=== PATIENT | female | born 1935 | race Caucasian/White ===

== ENCOUNTER → 2017-08-25 | Outpatient (CLI) | payer OTHER | LOC: FIMAGING 11:55 | PROVIDERS: ATTEND Family Medicine | DX: Z12.31 Encounter for screening mammogram for malignant neoplasm of breast (principal) | CPT/HCPCS: G0202 ==

== ENCOUNTER → 2017-10-27 | Outpatient (CLI) | payer OTHER | LOC: BMCIMAGING 14:34 | PROVIDERS: ATTEND Family Medicine | DX: M71.22 Synovial cyst of popliteal space [Baker], left knee (principal) ==

== ENCOUNTER → 2018-03-27 | Outpatient (CLI) | payer OTHER | LOC: FIMAGING 12:57 | PROVIDERS: ATTEND Family Medicine | DX: N60.02 Solitary cyst of left breast (principal) ==

== ENCOUNTER → 2018-09-15 | Outpatient (CLI) | payer OTHER | LOC: FIMAGING 09:46 | PROVIDERS: ATTEND Family Medicine | DX: Z12.31 Encounter for screening mammogram for malignant neoplasm of breast (principal) ==

== ENCOUNTER 2018-10-22 16:39 | Inpatient (IN) | payer OTHER ==
--- NOTE | 2018-10-22 16:59 | EDPHY ---
H & P Time Seen by Provider: 10/22/18 16:57 HPI/ROS: CHIEF COMPLAINT: Fatigue and fever HISTORY OF PRESENT ILLNESS: Patient has been having symptoms on and off since about . She has been feeling intermittent fatigue and fever and chills and was started on azithromycin yesterday [facility] with a little bit of shortness of breath. Today she feels worse and comes to the ER for further evaluation. Fatigue and shortness of breath and fever. Symptoms moderate. Worse with exertion. Really more pronounced over the last 2-3 days. REVIEW OF SYSTEMS: Eye: no change in vision ENT: no sore throat Cardiac: no chest pain or syncope Pulmonary: HPI no hemoptysis or sputum production Abdomen: no vomiting, diarrhea, abdominal pain Musculoskeletal: no back pain or leg swelling Skin: no rash Neuro: no headache Constitutional: HPI : no urinary symptoms A comprehensive 10 point review of systems is otherwise negative aside from elements mentioned in the history of present illness. PAST MEDICAL HISTORY: Includes pneumonia, bowel obstruction, PE, C diff Social history: Nonsmoker General Appearance: Alert and conversant, cooperative. Eyes: No scleral icterus. ENT, Mouth: Dry mucous membranes. Respiratory: Rhonchi at the left base, slightly increased respiratory rate. Cardiovascular: Regular rate and rhythm. Gastrointestinal: Abdomen is soft and non tender. Neurological: Alert, face symmetric, normal motor and sensory in extremities. Skin: Warm and dry, no rashes. Musculoskeletal: No peripheral edema. Psychiatric: Not agitated. Emergency Department course/MDM: Chest x-ray, sepsis screening with lactate, IV fluid bolus. 1814: Chest x-ray personally reviewed shows left lower lung infiltrate, discussed with Dr. Vernon for admission. 1827: Flu positive, Tamiflu ordered. Will hold on staphylococcal antibiotics such as vancomycin at this time, discussed with Saulo. Smoking Status: Former smoker Constitutional: Initial Vital Signs Temperature (C) 38.6 C H 10/22/18 16:44 Heart Rate 96 10/22/18 16:44 Respiratory Rate 18 10/22/18 16:44 Blood Pressure 104/79 10/22/18 16:44 O2 Sat (%) 84 L 10/22/18 16:44 O2 Delivery Mode Nasal Cannula O2 (L/minute) 3 Allergies/Adverse Reactions: Sulfa (Sulfonamide Antibiotics) [Sulfa(Sulfonamide Antibiotics)] Allergy ( Verified 10/22/18 16:48) Rash Home Medications: Medication Instructions Recorded Cholecalciferol Vit D3 [Vitamin D3 2,000 units PO DAILY 12/28/12 2000 units (OTC)] Azithromycin 250 mg PO DAILY 10/22/18 Cyanocobalamin [Vitamin B12 (*)] 1,000 mcg PO DAILY 10/22/18 Levothyroxine [Synthroid 88 mcg 88 mcg PO DAILY06 10/22/18 (*)] Medical Decision Making - Diagnostics Imaging Results: Imaging Impressions Chest X-Ray 10/22/18 17:08 Impression: Stable negative chest. Large hiatal hernia. Imaging: I viewed and interpreted images myself Differential Diagnosis: Differential for fever considered including but not limited to UTI or pyelonephritis, pneumonia, meningitis, influenza. Critical Care Time: Critical care time spent by me, Dr. Harris, exclusively with the care of this patient was 40 minutes, exclusive of PA or PACKAGING ASSEMBLER time and exclusive of separate procedures. The organ system at risk was pulmonary and I ordered supplemental oxygen, antiviral, antibiotics, IV fluids to stabilize the patient and prevent worsening of the patient's condition. - Data Points Laboratory Results: Laboratory Results 10/22/18 17:25 10/22/18 17:25 10/22/18 10/22/18 10/22/18 17:25 17:25 17:25 WBC RBC Hgb Hct MCV MCH MCHC RDW Plt Count MPV Neut % (Auto) Lymph % (Auto) [place] % (Auto) Eos % (Auto) Baso % (Auto) Nucleat RBC Rel Count Absolute Neuts (auto) Absolute Lymphs (auto) Absolute Monos (auto) Absolute Eos (auto) Absolute Basos (auto) Absolute Nucleated RBC Immature Gran % Immature Gran # PT 15.3 SEC H SEC (12.0-15.0) INR 1.19 H (0.83-1.16) APTT 30.4 SEC SEC (23.0-38.0) VBG Lactic Acid Sodium 136 mEq/L mEq/L (135-145) Potassium 3.8 mEq/L mEq/L (3.5-5.2) Chloride 105 mEq/L mEq/L (97-110) Carbon Dioxide 25 mEq/l mEq/l (22-31) Anion Gap 6 mEq/L mEq/L (6-14) BUN 17 mg/dL mg/dL (7-23) Creatinine 0.8 mg/dL mg/dL (0.6-1.0) Estimated GFR > 60 Glucose 117 mg/dL H mg/dL (70-100) Calcium 8.5 mg/dL mg/dL (8.5-10.4) Total Bilirubin 0.8 mg/dL mg/dL (0.1-1.4) Nasal Influenza A PCR FLU A DETECTED H (NEGATIVE) Nasal Influenza B PCR NEGATIVE FOR FLU B (NEGATIVE) 10/22/18 10/22/18 17:25 17:25 WBC 5.69 10^3/uL 10^3/uL (3.80-9.50) RBC 4.45 10^6/uL 10^6/uL (4.18-5.33) Hgb 13.3 g/dL g/dL (12.6-16.3) Hct 38.9 % % (38.0-47.0) MCV 87.4 fL fL (81.5-99.8) MCH 29.9 pg pg (27.9-34.1) MCHC 34.2 g/dL g/dL (32.4-36.7) RDW 12.8 % % (11.5-15.2) Plt Count 197 10^3/uL 10^3/uL (150-400) MPV 9.8 fL fL (8.7-11.7) Neut % (Auto) 77.4 % H % (39.3-74.2) Lymph % (Auto) 11.6 % L % (15.0-45.0) [place] % (Auto) 9.8 % % (4.5-13.0) Eos % (Auto) 0.2 % L % (0.6-7.6) Baso % (Auto) 0.5 % % (0.3-1.7) Nucleat RBC Rel Count 0.0 % % (0.0-0.2) Absolute Neuts (auto) 4.40 10^3/uL 10^3/uL (1.70-6.50) Absolute Lymphs (auto) 0.66 10^3/uL L 10^3/uL (1.00-3.00) Absolute Monos (auto) 0.56 10^3/uL 10^3/uL (0.30-0.80) Absolute Eos (auto) 0.01 10^3/uL L 10^3/uL (0.03-0.40) Absolute Basos (auto) 0.03 10^3/uL 10^3/uL (0.02-0.10) Absolute Nucleated RBC 0.00 10^3/uL 10^3/uL (0-0.01) Immature Gran % 0.5 % % (0.0-1.1) Immature Gran # 0.03 10^3/uL 10^3/uL (0.00-0.10) PT INR APTT VBG Lactic Acid 1.1 mmol/L mmol/L (0.7-2.1) Sodium Potassium Chloride Carbon Dioxide Anion Gap BUN Creatinine Estimated GFR Glucose Calcium Total Bilirubin Nasal Influenza A PCR Nasal Influenza B PCR Medications Given: Oseltamivir Phosphate (Tamiflu) 75 mg PO EDNOW ONE Stop: 10/23/18 18:28 Last Admin: 10/22/18 19:05 Dose: 75 mg Discontinued Medications Sodium Chloride (Ns) 2,100 mls @ 4,200 mls/hr 30 ml/kg infuse over 30 min ( 2100 ml) IV EDNOW ONE PRN Reason: Protocol Stop: 10/22/18 17:37 Last Admin: 10/22/18 17:23 Dose: 2,100 mls Azithromycin 500 mg/ Dextrose 255 mls @ 255 mls/hr IV EDNOW ONE PRN Reason: Protocol Stop: 10/22/18 19:13 Last Admin: 10/22/18 19:05 Dose: 255 mls Ceftriaxone Sodium/Dextrose (Rocephin 1 Gm (Premix)) 50 mls @ 100 mls/hr IV EDNOW ONE PRN Reason: Protocol Stop: 10/22/18 18:43 Last Admin: 10/22/18 18:29 Dose: 50 mls Departure - Departure Disposition: [facility] Inpatient Acute Clinical Impression: Influenza A Pneumonia Qualifiers: Pneumonia type: due to unspecified organism Laterality: left Lung location: lower lobe of lung Qualified Code(s): J18.1 - Lobar pneumonia, unspecified organism Condition: Fair
[2018-10-22] MEDS ORDERED: NS 2,100 ML IV ONE (17:08)
[2018-10-22 17:46] LABS: PLATELET COUNT 197 10^3/uL (150-400)
[2018-10-22 17:55] LABS: INR 1.19 (0.83-1.16); PROTIME(PATIENT) 15.3 SEC (12.0-15.0)
[2018-10-22] MEDS ORDERED: AZITHROMYCIN IV 500 MG in D5W 250 ML IV ONE (18:14)
[2018-10-22] MEDS ORDERED: OSELTAMIVIR PHOSPHATE 75 MG CAP ONE (19:00)
[2018-10-22] MEDS ORDERED: OSELTAMIVIR PHOSPHATE 75 MG CAP PO ONE (19:00)
[2018-10-22] MEDS ORDERED: NS 1,000 ML IV SCH (19:15)
[2018-10-22] MEDS ORDERED: ONDANSETRON DISINTEGRATING 4 MG TAB PO PRN (19:15)
[2018-10-22] MEDS ORDERED: ALBUTEROL 3 ML DEYVIAL IH PRN (19:15)
[2018-10-22] MEDS ORDERED: ONDANSETRON 4 MG/2 ML VIAL IVP PRN (19:15)
--- NOTE | 2018-10-22 20:02 | GHP ---
DATE OF ADMISSION: 10/22/2018 HISTORY OF PRESENT ILLNESS: The patient is a pleasant 83-year-old female with history of remote smal l bowel obstruction with perforation and abscess as well as C difficile and PE, who presents with mal aise, fevers, and cough. States she has been feeling poorly since mid or late September with a cough productive of sputum but did not seek care and then she began to have fever and some shaking chills w ithout myalgias. She sought care yesterday, prescribed azithromycin. She returns to the ER today fe eling worse. She has a cough productive of dry sputum, and she was 84% on room air on presentation a nd febrile. ED evaluation reveals influenza A and left lower lobe pneumonia, retrocardiac. REVIEW OF SYSTEMS: Complete 10-point review of systems conducted. Negative, except as noted in the HPI. PAST MEDICAL HISTORY: Small bowel obstruction in December of 2012. That hospital stay was complicated by a pulmonary embolism. She had C difficile subsequently. She also has hypothyroidism. ALLERGIES: Sulfa. HOME MEDICATIONS: Azithromycin started yesterday at 250 mg, vitamin D3, cyanocobalamin, levothyroxin e. SOCIAL HISTORY: Lives with her locally. Occasional alcohol. No tobacco. FAMILY HISTORY: Parents . PHYSICAL EXAMINATION: PRESENTING VITALS: Temp 38.6, blood pressure 104/79, pulse 96, breathing 18 t imes a minute, 84% on room air, 91 on 2 L. GENERAL: No acute distress. HEENT: Sclerae anicteric. Oropharynx clear. Mucous membranes are moist. 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 L UNGS: Show rhonchi bilaterally with decreased breath sounds and crackles in the left base. No wheez e. HEART: S1, S2. Not tachycardic. ABDOMEN: Soft, nontender, nondistended. LOWER EXTREMITIES: No edema. Calves nontender. SKIN: Without rash. NEUROLOGIC: Nonfocal. LABS: White count 5.7, hematocrit 38.9, platelets are 197,000. INR is 1.2. Sodium 136, potassium 3 .8, chloride 105, bicarb 25, BUN 17, creatinine 0.8, glucose 117. Venous lactate is 1.1. Nasal swab positive for flu A. Chest x-ray interpreted by me shows left retrocardiac infiltrate. I have discu ssed the case with Dr. Juan David Harris. ASSESSMENT AND PLAN: 83-year-old female with influenza A and likely secondary bacterial pneumonia. 1. Influenza A. Start Tamiflu. 2. Pneumonia. The radiologist felt this did not represent an infiltrate. It seems to be she has a spine sign to me also. She was started on ceftriaxone and azithromycin. I will continue that. 3. History of pulmonary embolism. Aml-strpncpub-brlbxs heparin prophylaxis indicated. 4. History of Clostridium difficile. This was 5 years ago, so will hold on by-mouth vancomycin prop hylaxis. 5. Acute hypoxemic respiratory failure presumably secondary to air-space disease. Pulmonary embolis m is considered, but at this time in the setting of infection and what I believe to be an infiltrate, will hold off on further evaluation. 6. Disposition: Inpatient status. Physical Therapy, Occupational Therapy. /[id number]/MODL
--- NOTE | 2018-10-22 23:00 | PDMN ---
Medical Necessity Medical necessity: Pt meets IP criteria as of 10/22/2018 per and SANAZ M-[id number] ( Pneumonia, community acquired) est los > 2 mn for ongoing tx and management of pneumonia and influenza A with acute hypoxic respiratory failure (84% RA) in an elderly pt; requiring IV ABX, respiratory support and therapies.
[2018-10-23] MEDS: LEVOTHYROXINE 88 MCG TAB PO SCH (05:12)
[2018-10-23 05:31] LABS: PLATELET COUNT 175 10^3/uL (150-400)
[2018-10-23] MEDS: CYANO/VITAMIN B12 1000 MCG TAB PO SCH (08:35)
[2018-10-23] MEDS: ACETAMINOPHEN 325 MG TAB PO PRN (08:35)
[2018-10-23] MEDS: AZITHROMYCIN IV 500 MG in NS 250 ML IV SCH (08:36)
[2018-10-23] MEDS: CHOLECALCIFEROL VIT D3 1,000 UNITS TAB PO SCH (08:36)
[2018-10-23] MEDS: ENOXAPARIN 40 MG/0.4 ML SYR SC SCH (08:36)
[2018-10-23] MEDS: OSELTAMIVIR PHOSPHATE 75 MG CAP PO SCH ×2 (08:36→17:02)
--- NOTE | 2018-10-23 12:15 | HOSPPROG ---
Hospitalist Progress Note Assessment/Plan: [facility] Patient Name: RENÉ CADET Rpt#: [id number] Unit Number: [id number] Attending/ER Physician: Jarvis Vernon MD Patient Type: ADM IN Adm Date/Source: 10/22/18 EMR Discharge Date: Primary Carrier: MEDICARE INPATIENT René Cadet is an 83 y/o woman who presented to the ER w malaise, fever and cough. She sought care prior and was started on azithromycin. First encounter, chart reviewed. *influenza A -tamiflu *pna -ceftriaxone and azithromycin (10/22) *hx of PE -lmwh *acute hypoxemic respiratory failure -due to the above *hx of c diff 5 years ago -will monitor for this, for now will not start oral vanco -if she has diarrhea, will check for c diff *plan: continue supportive care. Subjective: René says she feels terrible today. Is tired and worn out. Objective: Vital Signs Temp Pulse Resp BP Pulse Ox 36.7 C 69 16 100/55 L 90 L 10/23/18 12:09 10/23/18 12:09 10/23/18 12:09 10/23/18 12:09 10/23/18 12:09 Laboratory Results 10/23/18 04:47 10/23/18 04:47 10/22/18 10/23/18 10/24/18 05:59 05:59 05:59 Intake Total 1100 830 Output Total 300 Balance 800 830 PT 15.3 SEC (12.0-15.0) H 10/22/18 17:25 INR 1.19 (0.83-1.16) H 10/22/18 17:25 - Physical Exam Constitutional: chronically ill appearing, uncomfortable Eyes: PERRL Ears, Nose, Mouth, Throat: hearing normal Cardiovascular: regular rate and rhythym Respiratory: no respiratory distress, bronchial breath sounds, rhonchi (left base) Skin: warm Musculoskeletal: generalized weakness Psychiatric: interacting appropriately ICD10 Worksheet Patient Problems: Problems Problem Status Onset Influenza A Acute Pneumonia Acute Ventral hernia Acute
--- NOTE | 2018-10-23 15:55 | ASMTCMCOM ---
CM Note CM Note Notes: Pt admitted for pneumonia and is positive for flu A. Pt lives at home with and is normally independent in ADLs. OT/PT cleared pt for home, anticipate she will dc home w/support of and daughter when medically stable, CM available for any changes. DC Plan: Independent Date Signed: 10/23/2018 12:02 PM Electronically Signed By:Julienne Mares RN
[2018-10-23] MEDS ORDERED: OSELTAMIVIR PHOSPHATE 75 MG CAP PO ONE (18:27)
[2018-10-24] MEDS: LEVOTHYROXINE 88 MCG TAB PO SCH (06:36)
[2018-10-24] MEDS: CHOLECALCIFEROL VIT D3 1,000 UNITS TAB PO SCH (08:16)
[2018-10-24] MEDS: ENOXAPARIN 40 MG/0.4 ML SYR SC SCH (08:16)
[2018-10-24] MEDS: OSELTAMIVIR PHOSPHATE 75 MG CAP PO SCH ×2 (08:16→18:10)
[2018-10-24] MEDS: CYANO/VITAMIN B12 1000 MCG TAB PO SCH (08:16)
[2018-10-24] MEDS: AZITHROMYCIN IV 500 MG in NS 250 ML IV SCH (08:17)
[2018-10-25] MEDS: LEVOTHYROXINE 88 MCG TAB PO SCH (07:26)
[2018-10-25] MEDS: OSELTAMIVIR PHOSPHATE 75 MG CAP PO SCH ×2 (08:36→17:30)
[2018-10-25] MEDS: CHOLECALCIFEROL VIT D3 1,000 UNITS TAB PO SCH (08:36)
[2018-10-25] MEDS: CYANO/VITAMIN B12 1000 MCG TAB PO SCH (08:36)
[2018-10-25] MEDS: AZITHROMYCIN IV 500 MG in NS 250 ML IV SCH (08:37)
[2018-10-25] MEDS: ENOXAPARIN 40 MG/0.4 ML SYR SC SCH (08:46)
--- NOTE | 2018-10-25 10:07 | HOSPPROG ---
Hospitalist Progress Note Assessment/Plan: [facility] Patient Name: RENÉ CADET Rpt#: [id number] Unit Number: [id number] Attending/ER Physician: Jarvis Vernon MD Patient Type: ADM IN Adm Date/Source: 10/22/18 EMR Discharge Date: Primary Carrier: MEDICARE INPATIENT René Cadet is an 83 y/o woman who presented to the ER w malaise, fever and cough. She sought care prior and was started on azithromycin. *influenza A -tamiflu *pna -ceftriaxone and azithromycin (10/22) -blood cx show no growth -add Mucinex & duonebs (remote hx of smoking) * concern hx of PE -reviewed her CTA -no PE's- she has had 2 CTA without documentation of a PE ( one in March 2013 and December 2012) *acute hypoxemic respiratory failure -due to the above -asked RT to do a nocturnal study without oxygen to see how she does -needed O2 during the night *hx of c diff 5 years ago (occurred in 2012) -will monitor for this, for now will not start oral vanco -if she has diarrhea, will check for c diff *plan: continue supportive care, will get a nocturnal study, add Mucinex and duonebs, Finae Subjective: René is feeling a bit worse today, congested and concerned about using oxygen at home. Objective: Vital Signs Temp Pulse Resp BP Pulse Ox 37.1 C 61 16 125/65 H 91 L 10/25/18 08:00 10/25/18 08:00 10/25/18 08:00 10/25/18 08:00 10/25/18 08:00 Laboratory Results 10/23/18 04:47 10/23/18 04:47 10/24/18 10/25/18 10/26/18 05:59 05:59 05:59 Intake Total 1080 Output Total 1400 800 Balance -320 -800 PT 15.3 SEC (12.0-15.0) H 10/22/18 17:25 INR 1.19 (0.83-1.16) H 10/22/18 17:25 - Physical Exam Constitutional: no apparent distress, appears nourished Eyes: PERRL Ears, Nose, Mouth, Throat: hearing normal Cardiovascular: regular rate and rhythym Respiratory: no respiratory distress, reduced air movement (bases, lung sounds tight) Skin: warm Musculoskeletal: full muscle strength Neurologic: AAOx3 Psychiatric: interacting appropriately ICD10 Worksheet Patient Problems: Problems Problem Status Onset Influenza A Acute Pneumonia Acute Ventral hernia Acute
[2018-10-25] MEDS: guaiFENesin 600 MG TAB.ER PO SCH ×2 (11:34→20:39)
[2018-10-25] MEDS: FLUTICASONE NASAL 120 SPRAYS/16 GM MDI EACHNARE SCH (11:34)
[2018-10-25] MEDS: IPRATROPIUM/ALBUTEROL 3 ML DEYVIAL IH SCH ×2 (13:48→21:11)
--- NOTE | 2018-10-25 16:34 | ASMTCMCOM ---
CM Note CM Note Notes: CM discussed case with CRISTI Lima. Patient to undergo nocturnal O2 study, may require Home O2 at discharge. CM to follow. D/C Plan: Likely Independent with home O2 Date Signed: 10/25/2018 04:33 PM Electronically Signed By:Seema Buckley
[2018-10-26] MEDS: IPRATROPIUM/ALBUTEROL 3 ML DEYVIAL IH SCH ×3 (06:06→22:20)
[2018-10-26] MEDS: AZITHROMYCIN IV 500 MG in NS 250 ML IV SCH (08:08)
[2018-10-26] MEDS: CYANO/VITAMIN B12 1000 MCG TAB PO SCH (08:13)
[2018-10-26] MEDS: guaiFENesin 600 MG TAB.ER PO SCH ×2 (08:13→21:04)
[2018-10-26] MEDS: LEVOTHYROXINE 88 MCG TAB PO SCH (08:13)
[2018-10-26] MEDS: OSELTAMIVIR PHOSPHATE 75 MG CAP PO SCH ×2 (08:13→18:04)
[2018-10-26] MEDS: ENOXAPARIN 40 MG/0.4 ML SYR SC SCH (08:14)
[2018-10-26] MEDS: CHOLECALCIFEROL VIT D3 1,000 UNITS TAB PO SCH (08:14)
[2018-10-26] MEDS: FLUTICASONE NASAL 120 SPRAYS/16 GM MDI EACHNARE SCH (09:25)
--- NOTE | 2018-10-26 10:54 | HOSPPROG ---
Hospitalist Progress Note Assessment/Plan: [facility] Patient Name: RENÉ CADET Rpt#: [id number] Unit Number: [id number] Attending/ER Physician: Jarvis Vernon MD Patient Type: ADM IN Adm Date/Source: 10/22/18 EMR Discharge Date: Primary Carrier: MEDICARE INPATIENT René Cadet is an 83 y/o woman who presented to the ER w malaise, fever and cough. She sought care prior and was started on azithromycin. *influenza A -tamiflu *pna -ceftriaxone and azithromycin (10/22) -blood cx show no growth -add Mucinex & duonebs (remote hx of smoking) * concern hx of PE -reviewed her CTA -no PE's- she has had 2 CTA without documentation of a PE ( one in March 2013 and December 2012) *acute hypoxemic respiratory failure -due to the above -asked RT to do a nocturnal study -she will need O2 at dc. >65% of the night, she dropped below 90% -needed O2 during the night *hx of c diff 5 years ago (occurred in 2012) -will monitor for this, for now will not start oral vanco -if she has diarrhea, will check for c diff *plan: poss dc later today or tomorrow, she isn't sure she is feeling well enough for dc. I reviewed the nocturnal sleep study mynor Roper, she really didn' t want oxygen but is willing to use it. Subjective: René is feeling not very well today; tired. Objective: Vital Signs Temp Pulse Resp BP Pulse Ox 36.0 C 62 16 145/85 H 94 10/26/18 07:33 10/26/18 07:33 10/26/18 07:33 10/26/18 07:33 10/26/18 07:33 Laboratory Results 10/23/18 04:47 10/23/18 04:47 10/25/18 10/26/18 10/27/18 05:59 05:59 05:59 Intake Total 100 Output Total 800 1300 Balance -800 -1200 PT 15.3 SEC (12.0-15.0) H 10/22/18 17:25 INR 1.19 (0.83-1.16) H 10/22/18 17:25 - Physical Exam Constitutional: no apparent distress, appears nourished, not in pain Eyes: PERRL Ears, Nose, Mouth, Throat: hearing normal Cardiovascular: regular rate and rhythym Respiratory: no respiratory distress, reduced air movement (lung sounds clearer today) Gastrointestinal: normoactive bowel sounds Skin: warm Musculoskeletal: full muscle strength Neurologic: AAOx3 Psychiatric: interacting appropriately ICD10 Worksheet Patient Problems: Problems Problem Status Onset Influenza A Acute Pneumonia Acute Ventral hernia Acute
[2018-10-26] MEDS ORDERED: IPRATROPIUM/ALBUTEROL 3 ML DEYVIAL IH PRN (22:40)
[2018-10-27 07:57] VITALS: BP 129/72
[2018-10-27] MEDS: OSELTAMIVIR PHOSPHATE 75 MG CAP PO SCH (08:26)
[2018-10-27] MEDS: ENOXAPARIN 40 MG/0.4 ML SYR SC SCH (08:26)
[2018-10-27] MEDS: LEVOTHYROXINE 88 MCG TAB PO SCH (08:26)
[2018-10-27] MEDS: CHOLECALCIFEROL VIT D3 1,000 UNITS TAB PO SCH (08:26)
[2018-10-27] MEDS: CYANO/VITAMIN B12 1000 MCG TAB PO SCH (08:26)
[2018-10-27] MEDS: guaiFENesin 600 MG TAB.ER PO SCH (08:26)
[2018-10-27] MEDS: AZITHROMYCIN IV 500 MG in NS 250 ML IV SCH (08:27)
[2018-10-27] MEDS: FLUTICASONE NASAL 120 SPRAYS/16 GM MDI EACHNARE SCH (08:27)
--- NOTE | 2018-10-27 11:41 | PDHOMEO2F ---
Home Oxygen Face to Face Home Orders: I certify that a physician or a nurse practitioner or physician's metal forger's assistant has had a [id number] encounter with this patient on the date of this order due to the diagnosis listed, which relates to the primary reason the patient requires home oxygen. Alternative treatments have been tried, or considered, and deemed ineffective. It is anticipated that supplemental oxygen will result in improvement with treatment. Home oxygen qualifying diagnosis: RIGOBERTO SpO2 on room air (%): 64 Frequency of home oxygen needed: during sleep Home oxygen liters per minute: 2 Home oxygen delivery device: nasal cannula Concentrator: Yes E-tanks for mobility and back up: Yes If ordering portable O2, is the patient mobile in the home?: Yes I certify that, based on these findings, the home oxygen is medically necessary for this patient for the following length of time. Length of time home oxygen needed: 3 months
[2018-10-27] MEDS: ACETAMINOPHEN 325 MG TAB PO PRN (12:21)
--- NOTE | 2018-10-27 15:41 | GDS ---
DISCHARGE DIAGNOSES: 1. Influenza A. 2. Pneumonia. 3. Acute hypoxemic respiratory failure. STUDIES AND PROCEDURES DONE: Sleep study. PHYSICAL EXAM: GENERAL: The patient is alert. VITAL SIGNS: Afebrile at 36.5, pulse 60, respiratory rate 16, blood pressure is 129/72. She is saturating 91% on room air. I have seen and evaluated the patient on the day of discharge. HOSPITAL COURSE: The patient is an 83-year-old female who presented to the emergency room with compl aints of fever and cough. She was evaluated and diagnosed with: 1. Influenza A. she received Tamiflu treatment during this hospitalization. 2. Pneumonia. This is in the setting of influenza. She was treated however with antibiotic therapy . Blood cultures have shown no growth. She is significantly improved. 3. Acute hypoxemic respiratory failure. She did have a nocturnal sleep study during this hospitaliz ation that demonstrated that she is severely hypoxic at night. She has been prescribed oxygen at the time of disposition. I have instructed her to follow up in the outpatient setting with an official sleep study for further evaluation and management of her potential obstructive sleep apnea. 4. Disposition. She will be discharged home independently. There are no pending studies. DISCHARGE MEDICATIONS: Please refer to EMR form. I have not provided any prescriptions for the jason ent at the time of disposition nor have I discontinued any of her previously prescribed home medicati ons to the best of my knowledge. Follow-up will be with the primary care physician as well as alondra orozco as recommended. TIME SPENT WITH PATIENT: I have spent greater than 35 minutes in the care, coordination, and managem ent of the patient's disposition. /[id number]/MODL
== END 2018-10-27 12:50 | disposition home or self-care (01) | DRG 193 ==
LOC: F3E 19:39
PROVIDERS: ADMIT Internal Medicine; ATTEND Internal Medicine
DX: J10.00 Influenza due to other identified influenza virus with unspecified type of pneumonia (principal); J96.01 Acute respiratory failure with hypoxia; E03.9 Hypothyroidism, unspecified; Z86.711 Personal history of pulmonary embolism; Z87.891 Personal history of nicotine dependence
CPT/HCPCS: 96365; 97161-GP; 97165-GO; 97530-GO; J0456; J0696; J1650